=== PATIENT | female | born 1945 | race Caucasian/White ===

== ENCOUNTER → 2023-06-21 07:22 | Outpatient (REF) | payer MEDICARE, OTHER, SELFPAY ==
[2023-06-21 11:01] LABS: ALT (SGPT) 18 U/L (0-35); AST (SGOT) 24 U/L (14-36); Albumin 4.2 g/dl (3.5-5.0); Alkaline Phosphatase 58 U/L (38-126); Blood Urea Nitrogen 14 mg/dl (7-17); Calcium 9.9 mg/dl (8.4-10.2); Carbon Dioxide 26 mmol/L (22-30); Chloride 103 mmol/L (98-107); Glucose 110 mg/dl (70-99); HDL Cholesterol 79 mg/dl; LDL Cholesterol, Calculated 22 mg/dl; Potassium 4.3 mmol/L (3.5-5.1); Sodium 135 mmol/L (135-145); Total Bilirubin 0.9 mg/dl (0.2-1.3); Total Cholesterol 113 mg/dl (50-199); Total Protein 6.7 g/dl (6.3-8.2); Triglyceride 61 mg/dl (10-149); Very Low Density Lipoprotein 12 mg/dl (0-30); eGFR > 60.00
[2023-06-21 13:55] LABS: Glycohemoglobin (HgbA1c) 6.2 % (4.0-5.6)
== END ==
LOC: HWLAB 07:22
PROVIDERS: ATTENDING PHYSICIAN Internal Medicine; FAMILY PHYSICIAN Family Medicine
DX: E78.2 Mixed hyperlipidemia (principal); R73.01 Impaired fasting glucose
CPT/HCPCS: 36415; 80053; 80061; 83036

== ENCOUNTER → 2023-09-08 08:21 | Outpatient (REF) | payer MEDICARE, OTHER, SELFPAY ==
[2023-09-08 10:28] LABS: TSH 0.22 uIU/ml (0.47-4.68)
== END ==
LOC: HWLAB 08:21
PROVIDERS: ATTENDING PHYSICIAN Internal Medicine Cardiovascular Disease; FAMILY PHYSICIAN Family Medicine
DX: I47.10 Supraventricular tachycardia, unspecified (principal); R00.0 Tachycardia, unspecified
CPT/HCPCS: 36415; 84443

== ENCOUNTER → 2023-09-11 10:26 | Outpatient (REF) | payer MEDICARE, OTHER, SELFPAY ==
[2023-09-11 14:12] LABS: Free T3 3.31 pg/ml (2.77-5.27); Free T4 1.06 ng/dl (0.78-2.19)
== END ==
LOC: HWLAB 10:26
PROVIDERS: ATTENDING PHYSICIAN Internal Medicine Cardiovascular Disease; FAMILY PHYSICIAN Family Medicine
DX: R79.89 Other specified abnormal findings of blood chemistry (principal); E78.2 Mixed hyperlipidemia
CPT/HCPCS: 36415; 84439; 84481

== ENCOUNTER 2023-09-18 06:41 | Inpatient (IN) | payer MEDICARE, OTHER, SELFPAY ==
--- NOTE | 2023-08-15 13:10 | CM ---
Patient is scheduled for an elective R TKR on 09/18/23. Spoke with patient prior to surgery via telephone. Patient had a L TKR at in 2022. Reintroduced role of Orthopedic Navigator. Patient reports that she lives with her (who has vision
deficits) in a one story home. There are two steps to enter. She currently functions independently. She occasionally uses a cane or rolling walker and has no other DME. She has never had VN services. PCP is Dr. Vasile Orellana.
Discussed orthopedic program and post surgical plans. Reviewed anticipated length of stay and that goal is for her to return home at discharge. Also reviewed outpatient PT. Patient is in agreement with tentative plan and will go directly to
outpatient PT at [facility]. Her daughter will come over daily to provide support and drive her to PT.
Patient has completed online education.
Plan: Orthopedic Navigator will remain available to assist with the care of patient and will reassess discharge needs after surgery.
[2023-08-28 13:58] VITALS: BMI 41.3
[2023-08-28 14:36] LABS: Hemoglobin 12.7 g/dL (12.0-16.0); Mean Corp Hgb Conc. 33.4 g/dL (33.0-37.0); Mean Corpuscular Hgb 32.6 pg (27.0-31.0); Mean Corpuscular Volume 97.7 fL (81.0-99.0); Mean Platelet Volume 10.5 fL (7.4-10.4); Platelet Count 217 10^3/uL (130-400); Red Blood Cell Count 3.89 10^6/uL (4.20-5.40); Red Cell Dist. Width 13.7 % (11.5-14.5); White Blood Cell Count 5.4 10^3/uL (4.8-10.8)
[2023-08-28 15:17] LABS: ALT (SGPT) 21 U/L (0-35); AST (SGOT) 27 U/L (14-36); Albumin 4.3 g/dl (3.5-5.0); Alkaline Phosphatase 51 U/L (38-126); Blood Urea Nitrogen 13 mg/dl (7-17); Calcium 10.1 mg/dl (8.4-10.2); Carbon Dioxide 27 mmol/L (22-30); Chloride 105 mmol/L (98-107); Estimated Creatinine Clearance 77 ml/min; Glucose 105 mg/dl (70-99); Potassium 3.9 mmol/L (3.5-5.1); Sodium 140 mmol/L (135-145); Total Bilirubin 0.9 mg/dl (0.2-1.3); Total Protein 6.7 g/dl (6.3-8.2); eGFR > 60.00
[2023-08-29 09:07] LABS: Glycohemoglobin (HgbA1c) 5.8 % (4.0-5.6)
[2023-09-14 08:13] VITALS: BMI 41.3
[2023-09-18] VITALS (15 sets, daily range): BP systolic 112–159; BP diastolic 48–79; PULSE 60; O2SAT 94; BMI 41.3
[2023-09-18] MEDS: TYLENOL 650 MG PO ×4 (07:16→19:24)
[2023-09-18] MEDS: CELEBREX 200 MG PO (07:16)
[2023-09-18] MEDS: NORMOSOL-R 1000 IV ×2 (07:38→12:07)
[2023-09-18 07:41] LABS: Glucose - Point of Care 104 mg/dl (70-99)
--- NOTE | 2023-09-18 08:20 | W.DS.TRANS ---
DC Summary - Rotary Driller Helper
-
Discharge Instructions:
Sleep Apnea Risk High
Discharge Diagnosis/Procedures R TKA Dr. Pfeiffer 09/18/23
Diet Diabetic, Carb Controlled
Activity With Walker
Driving Restrictions No driving
Bathing Restrictions OK to Shower
Other Services PT
Instructions:
Stand-Alone Forms: Total Hip/Knee Replacement D/C
Changes to Home Medications: Yes
Discharge Medications:
DC Medications w/original date entered in [place]
escitalopram oxalate 5 mg tablet 5 mg PO DAILY Depression 08/01/22
metformin 500 mg tablet 500 mg PO QPM Diabetes 08/01/22
rosuvastatin 20 mg tablet 20 mg PO QPM High Cholesterol 08/01/22
verapamil 240 mg tablet,extended release 240 mg PO QPM Arrhythmia 08/01/22
mupirocin 2 % topical ointment 1 applic topical BID #1 tube 08/08/22
acetaminophen 325 mg tablet (Tylenol) 650 mg (2 x 325 mg) PO QID #0 tabs 08/30/22
apixaban 5 mg tablet (Eliquis) 5 mg PO BID 09/08/23
biotin 1 mg capsule 1 mg PO DAILY 09/08/23
calcium 100 mg capsule 400 mg PO DAILY 09/08/23
cholecalciferol (vitamin D3) 125 mcg (5,000 unit) tablet (Vitamin D3) 125 mcg PO DAILY 09/08/23
losartan 25 mg tablet 25 mg PO HS 09/08/23
hydromorphone 2 mg tablet 2 - 4 mg (1 - 2 x 2 mg) PO Q6H PRN 1 tab moderate pain, 2 severe #30 tabs 09/18/23
Home Medication Changes
apixaban 5 mg tablet (Eliquis) 5 mg PO BID 09/08/23--2.5mg bid
hydromorphone 2 mg tablet 2 - 4 mg (1 - 2 x 2 mg) PO Q6H PRN 1 tab moderate pain, 2 severe #30
Pending Results: No
--- NOTE | 2023-09-18 08:23 | W.DS.TRANS ---
Addendum entered and electronically signed by Savana Hauser PA-C 09/19/23 11:32:
Cefadroxil 500mg bid #14
Florastor bid
Original Note:
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
-
Discharge Instructions:
Sleep Apnea Risk High
Discharge Diagnosis/Procedures R TKA Dr. Pfeiffer 09/18/23
Diet Diabetic, Carb Controlled
Activity With Walker
Driving Restrictions No driving
Bathing Restrictions OK to Shower
Other Services PT
Instructions:
Stand-Alone Forms: Total Hip/Knee Replacement D/C
Changes to Home Medications: Yes
Discharge Medications:
DC Medications w/original date entered in [place]
escitalopram oxalate 5 mg tablet 5 mg PO DAILY Depression 08/01/22
metformin 500 mg tablet 500 mg PO QPM Diabetes 08/01/22
rosuvastatin 20 mg tablet 20 mg PO QPM High Cholesterol 08/01/22
verapamil 240 mg tablet,extended release 240 mg PO QPM Arrhythmia 08/01/22
mupirocin 2 % topical ointment 1 applic topical BID #1 tube 08/08/22
acetaminophen 325 mg tablet (Tylenol) 650 mg (2 x 325 mg) PO QID #0 tabs 08/30/22
biotin 1 mg capsule 1 mg PO DAILY 09/08/23
calcium 100 mg capsule 400 mg PO DAILY 09/08/23
cholecalciferol (vitamin D3) 125 mcg (5,000 unit) tablet (Vitamin D3) 125 mcg PO DAILY 09/08/23
losartan 25 mg tablet 25 mg PO HS 09/08/23
apixaban 5 mg tablet (Eliquis) 2.5 mg (1/2 x 5 mg) PO BID Blood clot prevention/tx/afib #0 tabs 09/18/23
docusate sodium 100 mg capsule (Colace) 100 mg PO BID stool softner #1 cap 09/18/23
hydromorphone 2 mg tablet 2 - 4 mg (1 - 2 x 2 mg) PO Q6H PRN 1 tab moderate pain, 2 severe #30 tabs 09/18/23
magnesium hydroxide 400 mg/5 mL oral suspension (Milk of Magnesia) 30 ml PO HS PRN Constipation #1 mL 09/18/23
sennosides 8.6 mg tablet (Senokot) 17.2 mg (2 x 8.6 mg) PO BID laxative #2 tabs 09/18/23
Home Medication Changes
apixaban 5 mg tablet (Eliquis) 2.5 mg (1/2 x 5 mg) PO BID Blood clot prevention/tx/afib #0 tabs 09/18/23
hydromorphone 2 mg tablet 2 - 4 mg (1 - 2 x 2 mg) PO Q6H PRN 1 tab moderate pain, 2 severe #30
Pending Results: No
[2023-09-18 10:39] LABS: Glucose - Point of Care 115 mg/dl (70-99)
[2023-09-18] MEDS: DILAUDID 2 MG PO (11:25)
--- NOTE | 2023-09-18 12:39 | PTCARENOTE ---
1225: Patient arrived to 2S. Full head to toe assessment completed. B/L LE neurovascular assessment completed. R knee aqaucell with scant amount of drainage. IVF running per order. Patient on RA with SpO2 greater than 92%. Call chen within reach and
bed in lowest position.
[2023-09-18 12:58] LABS: Glucose - Point of Care 147 mg/dl (70-99)
[2023-09-18] MEDS: NOVOLOG FLEXPEN-MODERATE RESISTANCE SC (13:06)
[2023-09-18] MEDS: NOVOLOG FLEXPEN 4 UNITS SC ×2 (13:35→17:02)
[2023-09-18 16:55] LABS: Glucose - Point of Care 157 mg/dl (70-99)
[2023-09-18] MEDS: CRESTOR 20 MG PO (17:01)
[2023-09-18] MEDS: ANCEF 5 IV ×2 (17:01→23:12)
[2023-09-18] MEDS: GLUCOPHAGE XR EXTENDED RELEASE 500 MG PO (17:01)
[2023-09-18] MEDS: NOVOLOG FLEXPEN-MODERATE RESISTANCE 1 UNITS SC (17:02)
[2023-09-18] MEDS: CALAN EXTENDED RELEASE 240 MG PO (17:03)
[2023-09-18] MEDS: DILAUDID 4 MG PO (19:23)
[2023-09-18] MEDS: SENOKOT 17.2 MG PO (19:24)
[2023-09-18] MEDS: BACTROBAN 2% OINTMENT 1 APPLIC NASAL (19:24)
[2023-09-18] MEDS: COLACE 100 MG PO (19:24)
[2023-09-18] MEDS: ELIQUIS 2.5 MG PO (19:29)
[2023-09-18] MEDS: NEURONTIN 300 MG PO (21:09)
[2023-09-18 21:30] LABS: Glucose - Point of Care 142 mg/dl (70-99)
[2023-09-19] MEDS: TYLENOL PO (00:05)
[2023-09-19] MEDS: DILAUDID 2 MG PO ×2 (00:30→10:33)
[2023-09-19] MEDS: TYLENOL 650 MG PO ×3 (00:30→11:06)
[2023-09-19 03:15] VITALS: BP 144/69
[2023-09-19 07:34] VITALS: BP 148/61
[2023-09-19 07:50] LABS: Glucose - Point of Care 184 mg/dl (70-99)
[2023-09-19] MEDS: NOVOLOG FLEXPEN-MODERATE RESISTANCE 1 UNITS SC (07:52)
[2023-09-19] MEDS: NOVOLOG FLEXPEN 4 UNITS SC (07:52)
[2023-09-19] MEDS: SENOKOT 17.2 MG PO (07:53)
[2023-09-19] MEDS: COLACE 100 MG PO (07:54)
[2023-09-19] MEDS: BACTROBAN 2% OINTMENT 1 APPLIC NASAL (07:54)
[2023-09-19] MEDS: LEXAPRO 5 MG PO (07:54)
[2023-09-19] MEDS: ELIQUIS 2.5 MG PO (07:54)
[2023-09-19 09:05] VITALS: BP 149/67; PULSE 56; O2SAT 98
[2023-09-19 09:46] VITALS: BP 164/68
--- NOTE | 2023-09-19 09:53 | CM ---
Addendum entered by Anna Tian 09/19/23 10:47:
Per patient she has script at home for PT.
Original Note:
Patient seen bedside.
Patient sitting in chair.
Daughter Maddie will transport home.
Plan is [facility] outpatient PT.
Per patient she has equipment from prior knee surgery.
IMM completed.
Plan: home with outpatient therapy.
--- NOTE | 2023-09-19 11:19 | W.PN.ORTHO ---
Today's Communication / Plan
-
d/c
Assessment
.
Distal Motor Intact: Yes
Dressing:
Clean, dry and intact.
Assessment:
New onset Afib pre-op 6% burden on ambulatory monitor-Eliquis initiated [id number] Verapamil uninterrupted-rate controlled/stable on tele
NIDDM
Morbid Obesity-BMI 41.2
-Cefadroxil ppx w/ probiotic has been added to meds--Rx sent-patient made aware
Plan
.
Surgery / Date: R TKA Dr. Pfeiffer 09/18/23
DVT Prophylaxis: Other (Eliquis 2.5mg bid-resume 5mg bid dosing on POD#3)
Activity:
Out of bed.
PT/OT
Discharge Plan: Home w/ Outpatient PT
Subjective
.
.:
Patient resting comfortably.
Vital Signs and Labs
.
Vital Signs and Labs:
Lab Results
08/28/23 13:37
08/28/23 13:37
Temp Pulse Resp BP Pulse Ox
98 F 67 16 148/61 97
09/19/23 07:34 09/19/23 07:34 09/19/23 07:34 09/19/23 07:34 09/19/23 07:34
Non-invasive Hgb result: 12.7
Physical Exam
-
HEENT: No pallor, cyanosis, or jaundice. Throat clear.
NECK: Supple. No JVD.
RESPIRATORY: Lungs clear to auscultation.
CVS: S1, S2 normal. RRR.� No murmur, rub or gallop.
ABDOMEN: Soft, non-tender. No distension. BS+/normal.
EXTREMITIES: strength equal, no calf pain with palpation
ELIGIBILITY CONSULTANT: AOx3. No focal deficits. avionics systems technician grossly intact
[2023-09-19 11:36] VITALS: BP 96/54
== END 2023-09-19 11:46 | disposition home or self-care (01) | DRG 470 ==
LOC: 2 SOUTH 06:41
PROVIDERS: ADMITTING PHYSICIAN Specialist; FAMILY PHYSICIAN Family Medicine
PROC: 0SRC0J9 Replacement of Right Knee Joint with Synthetic Substitute, Cemented, Open Approach (ICD-10-PCS; 2023-09-18)
DX: M17.11 Unilateral primary osteoarthritis, right knee (principal); I47.20 Ventricular tachycardia, unspecified; E66.01 Morbid (severe) obesity due to excess calories; Z68.39 Body mass index [BMI] 39.0-39.9, adult; I10 Essential (primary) hypertension; I34.0 Nonrheumatic mitral (valve) insufficiency; I70.0 Atherosclerosis of aorta; E11.9 Type 2 diabetes mellitus without complications; I48.91 Unspecified atrial fibrillation; E78.2 Mixed hyperlipidemia; Z96.652 Presence of left artificial knee joint; Z79.01 Long term (current) use of anticoagulants; Z79.84 Long term (current) use of oral hypoglycemic drugs; Z79.899 Other long term (current) drug therapy; Z90.89 Acquired absence of other organs; Z86.16 Personal history of COVID-19; Z85.828 Personal history of other malignant neoplasm of skin; Z82.49 Family history of ischemic heart disease and other diseases of the circulatory system
CPT/HCPCS: 36415; 73560; 80053; 82962; 83036; 85027; 87070; 97110; 97116; 97162; 97166; 97530; 97535; C1713; C1776

== ENCOUNTER 2023-11-27 19:00 | Emergency (ER) | payer MEDICARE, OTHER, SELFPAY ==
[2023-11-27 19:04] VITALS: BP 134/96
[2023-11-27 19:24] LABS: % Basophils 0.6 % (0-2); % Eosinophils 1.2 % (0-6); % Immature Granulocytes 0.1 % (0-0.5); % Lymphocytes 28.5 % (20.5-51.1); % Monocytes 7.8 % (1.7-9.3); % Neutrophils 61.8 % (42.2-75.2); Absolute Basophils 0.1 10^3/uL (0-0.2); Absolute Eosinophils 0.1 10^3/uL (0-0.7); Absolute Lymphocytes 2.3 10^3/uL (1.2-3.4); Absolute Monocytes 0.6 10^3/uL (0.1-0.6); Absolute Neutrophils 5.1 10^3/uL (1.4-6.5); Hematocrit 36.8 % (37.0-47.0); Hemoglobin 12.4 g/dL (12.0-16.0); Mean Corp Hgb Conc. 33.7 g/dL (33.0-37.0); Mean Corpuscular Hgb 30.5 pg (27.0-31.0); Mean Corpuscular Volume 90.6 fL (81.0-99.0); Mean Platelet Volume 9.6 fL (7.4-10.4); Nucleated Red Blood Cells % 0 %; Platelet Count 289 10^3/uL (130-400); Red Blood Cell Count 4.06 10^6/uL (4.20-5.40); Red Cell Dist. Width 13.5 % (11.5-14.5); White Blood Cell Count 8.2 10^3/uL (4.8-10.8)
[2023-11-27 19:40] VITALS: BP 115/61
[2023-11-27] MEDS: ADENOCARD 6 MG IV (19:41)
[2023-11-27] MEDS: NSS 500 IV (19:41)
--- NOTE | 2023-11-27 19:41 | ED.GENMED ---
History of Present Illness
General
Chief Complaint: Heart Rate Problem
Source: patient, spouse and family
Exam Limitations: none
Time Seen by Provider: 11/27/23 19:19
Nursing documentation reviewed up to this point in time: agreed with
History of Present Illness
History of Present Illness:
78-year-old female with a past medical history of hypertension, hyperlipidemia, paroxysmal SVT and paroxysmal atrial fibrillation (on Eliquis) who presents to the emergency department for evaluation of palpitations and tachycardia, fatigue. Patient
reports that the symptoms started Monday afternoon and initially they were intermittent�she would noticed intense palpitations and tachycardia and associated fatigue. She says that yesterday they started to become more persistent and today they
became much more intense which finally prompted her to come to the emergency room for assessment. She says the symptoms are very similar to prior episodes of SVT. She did have an ablation in the past but has had multiple episodes since. She
follows with Dr. Chavez for cardiology. She is on Eliquis and compliant. She is also on verapamil. She has not missed any doses of her medications with the exception of her evening dose of Eliquis today. She denies any chest pain, shortness of
breath, or any other complaints today.
Past History
Past History
ED Past Medical History: Arrthythmia, HTN and Other (Status post )
ED Past Surgical History: Cardiac (Ablation)
Social History
Tobacco: Non-smoker
Alcohol: Occasional
Drug: None
Personal:
Living: with family
Employment: Retired
Family History
Family History: Other (Mother with breast cancer and coronary artery disease, dad with prostate cancer)
Review of Systems
Review of Systems
All Other Systems: ROS reviewed and negative except as documented in HPI and ROS
Constitutional: Reports fatigue; Denies fever or chills
Respiratory: Denies trouble breathing
Cardiac: Reports palpitations; Denies chest pain or syncope
ABD/GI: Denies abdominal pain or vomiting
: Denies flank pain
Musculoskeletal: Denies neck pain or back pain
Neurological: Denies headache
Phy Exam
Physical Exam
Physical Exam:
General: Awake, alert, oriented x3; no acute distress
Head: Normocephalic, atraumatic
Eyes: Conjunctiva normal, pupils equal round and reactive to light bilaterally
Throat: Airway intact, handling secretions
Neck: Trachea midline, supple without meningismus
Lungs: Clear to auscultation bilaterally, no wheezing, rales, rhonchi
Heart: Tachycardia with ostensibly regular rhythm, no murmurs, gallops, or rubs
Abd: Soft, non distended, nontender
Neuro: No gross deficits
Skin: no rash
Extremities: No edema in extremities, equal pulses in all extremities
Scores
Heart Failure Risk
Heart Failure Risk Score: Not Applicable
Heart Score for Chest Pain Patients
STEMI patient?: Not applicable
Withdrawal Assessment of Alcohol
Withdrawal Assessment Completed?: Not applicable
Course
Orders/Labs/Results
Orders:
Orders
11/27/23 19:02
ECG [Electrocardiogram (*1)] Urgent
Reason for Study: Palpitations
EKG- Treatment ONCE
11/27/23 19:16
Complete Blood Count/With Diff Urgent
Comprehensive Metabolic Panel Urgent
Magnesium Urgent
TSH Reflex To Free T4 Urgent
11/27/23 19:28
0.9% Sodium Chloride 500 ml [Nss] 500 ml IV BOLUS
Adenosine [Adenocard] 6 mg IV NOW STA
11/27/23 19:30
Electrocardiogram (*1) Urgent
Reason for Study: Tachycardia
EKG- Treatment ONCE
Abnormal Lab Results
11/27/23
19:16
RBC 4.06 L 10^6/uL
(4.20-5.40)
Hct 36.8 L %
(37.0-47.0)
11/27/23 19:16
Vital Signs
Initial and Last Documented VS:
Initial Vital Signs
Temp Pulse Resp BP Pulse Ox
36.8 C 159 20 134/96 96
11/27/23 19:04 11/27/23 19:04 11/27/23 19:04 11/27/23 19:04 11/27/23 19:04
Last Documented Vital Signs
Temp Pulse Resp BP Pulse Ox
36.8 C 159 20 134/96 96
11/27/23 19:04 11/27/23 19:04 11/27/23 19:04 11/27/23 19:04 11/27/23 19:04
MDM/Problems Addressed
Differential Diagnosis Includes:
SVT, atrial fibrillation, atrial flutter
MDM/Problems Addressed:
78-year-old female presents for evaluation of palpitations and tachycardia, fatigue�ongoing since Monday but much worse today. She arrived was normotensive but tachycardic with a heart rate in the high 150s. Normal respiratory rate, normal pulse
ox, afebrile. Physical exam as above. Her EKG in triage shows what appears to be SVT�narrow complex regular tachycardia. IV placed labs sent off including a CBC and a CMP, thyroid studies. Will treat with adenosine. Reassess.
Patient treated with adenosine 6 mg rapid IV push with appropriate response and converted to sinus rhythm. Repeat EKG confirms sinus rhythm. Symptoms resolved with treatment here. Blood pressure remains normal. Will continue to monitor for
recurrence. Awaiting results of labs. If she remains asymptomatic in sinus rhythm with reassuring labs can likely be discharged with outpatient cardiology follow-up.
Chronic conditions affecting care:
Paroxysmal SVT
*Pulse Oximetry
Patient hypoxic: no
*EKG
Interpreted by ED Provider?: Yes
Heart Rate: 159
Rate: tachycardiac
Rhythm: SVT
[place]: left axis deviation
Interval: normal interval
QRS Pattern: normal QRS
Ischemia: non-specific ST changes
*Critical Care Note
Total Time (30-74mins, 75-104mins- exclusive of procedures): 30
comment:
Critical care statement: A total of 30 minutes of critical care time was provided for this patient. This includes management of unstable vital signs, evaluation of the patient at bedside, frequent reassessment, discussion with
consultants/hospitalist, and review of pertinent medical records. This time was separate from time utilized to perform any aforementioned documented procedures
Data Reviewed
Source: patient, spouse and family
ED Attending Note
-
Portions of this chart may have been created with voice recognition software.� Occasional wrong word or��sound alike� substitutions may have occurred due to the inherent limitations of voice recognition software.
Discharge Plan
Departure
Patient with high blood pressure during this ER visit?: No
Discharge Problem:
SVT (supraventricular tachycardia)
Instructions: Supraventricular tachycardia (SVT)
Prescriptions:
No Action
metformin 500 mg Tablet
500 mg PO QPM
Patient Comments:
patient stopped med
verapamil 240 mg Tablet Extended Release
240 mg PO QPM
rosuvastatin 20 mg Tablet
20 mg PO QPM
escitalopram oxalate 5 mg Tablet
5 mg PO DAILY
losartan 25 mg Tablet
25 mg PO HS
calcium 100 mg Capsule
400 mg PO DAILY
cholecalciferol (vitamin D3) [Vitamin D3] 125 mcg (5,000 unit) Tablet
125 mcg PO DAILY
biotin 1 mg Capsule
1 mg PO DAILY
sennosides [Senokot] 8.6 mg tablet
17.2 mg PO BID Qty: 2 0RF
hydromorphone 2 mg tablet
2 - 4 mg PO Q6H PRN (Reason: 1 tab moderate pain, 2 severe) Qty: 30 0RF
Rx Instructions:
Dx orthopedic surgery
Ongoing therapy
magnesium hydroxide [Milk of Magnesia] 400 mg/5 mL suspension
30 ml PO HS PRN (Reason: Constipation) Qty: 1 0RF
docusate sodium [Colace] 100 mg capsule
100 mg PO BID Qty: 1 0RF
Eliquis 5 mg Tablet
2.5 mg PO BID Qty: 0 0RF
Rx Instructions:
1/2tab (2.5mg) twice a day -RESUME 5MG TWICE DAILY DOSING ON 8/8 pm
acetaminophen [Tylenol] 325 mg tablet
650 mg PO QID
mupirocin 2 % ointment
1 applic topical BID
cefadroxil 500 mg capsule
500 mg PO BID Qty: 14 0RF
Rx Instructions:
*Take w/ food
*Take w/ probiotic
*POST-OP USE
Saccharomyces boulardii [Florastor] 250 mg capsule
250 mg PO BID Qty: 1 0RF
Referrals:
Vasile Orellana Jr., DO [Family Provider] -
Michelet Chavez MD [Active] - Call in 1-3 days for appt
Activity Restrictions/Additional Instructions:
Thank you for visiting the Emergency Department at [facility].
1. Please schedule a follow up appointment as directed. Call first thing tomorrow morning to make an appointment.
2. If indicated, please take your medications as instructed and indicated on discharge paperwork.
3. If any of your symptoms do not improve, or persist, or become more severe within 6-12 hours, please return to the emergency department for further care.
4. Please return to the emergency department if you develop a headache, neck pain/stiffness, fever greater than 100.4F, chest pain, shortness of breath, persistent nausea, vomiting, slurred speech, difficulty walking, numbness/tingling, weakness,
signs of infection or any other symptoms that are worrisome to you.
Please call [phone] if you have any questions.
Interventions
Interventions:
*General Assessment Last Done: 11/27/23 19:04
ED- Cardiac Assessment Last Done: 11/27/23 19:43
ED- Pulmonary Assessment Last Done: 11/27/23 19:43
Discharge Date and Time
Print Language: ARABIC
[2023-11-27 19:44] LABS: ALT (SGPT) 19 U/L (0-35); AST (SGOT) 27 U/L (14-36); Albumin 4.2 g/dl (3.5-5.0); Alkaline Phosphatase 37 U/L (38-126); Blood Urea Nitrogen 22 mg/dl (7-17); Calcium 9.9 mg/dl (8.4-10.2); Carbon Dioxide 20 mmol/L (22-30); Chloride 103 mmol/L (98-107); Glucose 156 mg/dl (70-99); Magnesium 1.8 mg/dl (1.6-2.3); Potassium 4.6 mmol/L (3.5-5.1); Sodium 138 mmol/L (135-145); Total Bilirubin 0.6 mg/dl (0.2-1.3); Total Protein 6.6 g/dl (6.3-8.2); eGFR > 60.00
[2023-11-27 20:00] VITALS: BP 113/60
[2023-11-27 20:11] LABS: TSH Reflex To Free T4 0.19 uIU/ml (0.47-4.68)
[2023-11-27 20:41] LABS: Free T4 1.08 ng/dl (0.78-2.19)
== END 2023-11-27 21:17 | disposition home or self-care (01) ==
LOC: EMR 19:00
PROVIDERS: EMERGENCY PHYSICIAN Emergency Medicine; FAMILY PHYSICIAN Family Medicine
DX: I47.10 Supraventricular tachycardia, unspecified (principal); I10 Essential (primary) hypertension; E78.5 Hyperlipidemia, unspecified; I48.0 Paroxysmal atrial fibrillation
CPT/HCPCS: 99291; 96374; 96361; 80053; 83735; 84439; 84443; 85025; 93005; J0153

== ENCOUNTER 2023-11-29 13:14 | Emergency (ER) | payer MEDICARE, OTHER, SELFPAY ==
[2023-11-29 13:20] VITALS: BP 149/87
[2023-11-29 13:30] VITALS: BP 143/86
[2023-11-29] MEDS: ADENOCARD 6 MG IV (13:42)
[2023-11-29 13:45] VITALS: BP 129/91
[2023-11-29 13:45] LABS: % Basophils 0.7 % (0-2); % Eosinophils 0.7 % (0-6); % Immature Granulocytes 0.3 % (0-0.5); % Lymphocytes 20.7 % (20.5-51.1); % Neutrophils 69.6 % (42.2-75.2); Absolute Basophils 0.1 10^3/uL (0-0.2); Absolute Eosinophils 0.1 10^3/uL (0-0.7); Absolute Lymphocytes 1.6 10^3/uL (1.2-3.4); Absolute Monocytes 0.6 10^3/uL (0.1-0.6); Absolute Neutrophils 5.3 10^3/uL (1.4-6.5); Hematocrit 36.8 % (37.0-47.0); Hemoglobin 12.6 g/dL (12.0-16.0); Mean Corp Hgb Conc. 34.2 g/dL (33.0-37.0); Mean Corpuscular Hgb 32.1 pg (27.0-31.0); Mean Corpuscular Volume 93.9 fL (81.0-99.0); Mean Platelet Volume 10.1 fL (7.4-10.4); Nucleated Red Blood Cells % 0 %; Platelet Count 252 10^3/uL (130-400); Red Blood Cell Count 3.92 10^6/uL (4.20-5.40); Red Cell Dist. Width 13.6 % (11.5-14.5); White Blood Cell Count 7.5 10^3/uL (4.8-10.8)
[2023-11-29 13:54] LABS: Blood Urea Nitrogen 17 mg/dl (7-17); Calcium 9.7 mg/dl (8.4-10.2); Carbon Dioxide 23 mmol/L (22-30); Chloride 104 mmol/L (98-107); Glucose 105 mg/dl (70-99); Potassium 4.4 mmol/L (3.5-5.1); Sodium 140 mmol/L (135-145); eGFR > 60.00
[2023-11-29 14:00] VITALS: BP 125/65
--- NOTE | 2023-11-29 14:01 | ED.GENMED ---
History of Present Illness
General
Chief Complaint: Heart Rate Problem
Source: patient and records
Time Seen by Provider: 11/29/23 13:30
History of Present Illness
History of Present Illness:
78-year-old female with past medical history of paroxysmal atrial fibrillation and paroxysmal SVT, hypertension, hyperlipidemia, [id number] diabetes presenting to the emergency department for evaluation of palpitations, lightheadedness
and mild shortness of breath which feels similar to earlier this week when she was found to be in SVT and converted with adenosine. Patient has a follow-up visit scheduled with cardiology for this coming Monday but due to symptoms decided to come
to the ER today. She notes that she was at the orthopedic doctor this morning for right knee pain but states that this was an unrelated issue. She denies any fevers or infectious symptoms. She does report good compliance with her Eliquis. No
other concerns presently.
Past History
Past History
ED Past Medical History: Arrthythmia, HTN, Hypercholesterolemia, NIDDM and Other (Status post )
ED Past Surgical History: Appendectomy, Cardiac (Ablation), and Orthopedic
Social History
Tobacco: Non-smoker
Alcohol: Occasional
Drug: None
Personal:
Living: with family
Employment: Retired
Family History
Family History: Other (Mother with breast cancer and coronary artery disease, dad with prostate cancer)
Review of Systems
Review of Systems
All Other Systems: ROS reviewed and negative except as documented in HPI and ROS
Phy Exam
Physical Exam
Physical Exam:
GENERAL: Alert , in no apparent distress
EYE: conjunctiva clear
NECK: Supple
ENT: mmm.
CARDIAC: Tachycardic rate and rhythm sitting around 150 bpm
LUNGS: Clear breath sounds bilaterally, no acute respiratory distress, no wheezes/rales/rhonchi
NEUROLOGICAL: Alert and oriented
SKIN: Warm and dry, skin intact.
MUSCULOSKELETAL: well perfused.
PSYCH: Normal and appropriate interaction.
Scores
Heart Failure Risk
Heart Failure Risk Score: Not Applicable
Heart Score for Chest Pain Patients
STEMI patient?: Not applicable
Withdrawal Assessment of Alcohol
Withdrawal Assessment Completed?: Not applicable
Course
Orders/Labs/Results
Orders:
Orders
11/29/23 13:16
Electrocardiogram (*1) Urgent
Reason for Study: Chest Pain
EKG- Treatment ONCE
11/29/23 13:34
BMP [Basic Metabolic Panel] Urgent
Complete Blood Count/With Diff Urgent
11/29/23 13:36
Adenosine [Adenocard] 6 mg .ROUTE .STK-MED ONE
11/29/23 13:39
Adenosine [Adenocard] 6 mg IV NOW STA
Abnormal Lab Results
11/29/23
13:34
RBC 3.92 L 10^6/uL
(4.20-5.40)
Hct 36.8 L %
(37.0-47.0)
MCH 32.1 H pg
(27.0-31.0)
Glucose 105 H mg/dl
(70-99)
11/29/23 13:34
11/29/23 13:34
Vital Signs
Initial and Last Documented VS:
Initial Vital Signs
Temp Pulse Resp BP Pulse Ox
97.5 F 160 16 149/87 95
11/29/23 13:20 11/29/23 13:20 11/29/23 13:20 11/29/23 13:20 11/29/23 13:20
Last Documented Vital Signs
Temp Pulse Resp BP Pulse Ox
97.5 F 78 18 131/63 94
11/29/23 13:20 11/29/23 14:15 11/29/23 14:15 11/29/23 14:15 11/29/23 14:15
Senior Applications Developer consulted with Physician
Senior Applications Developer consulted with physician?: Yes
Name of Physician Consulted: Matias
MDM/Problems Addressed
Differential Diagnosis Includes:
SVT, atrial fibrillation, no concern for ACS
MDM/Problems Addressed:
78-year-old female presenting to the emergency department for evaluation of palpitations, shortness of breath and lightheadedness. EKG done in triage shows suspected SVT with a rate in the 160s. Patient converted with 6 mg of adenosine earlier
this week back to a normal sinus rhythm. Patient currently stable and in no acute distress. Discussed with patient risk versus benefit of attempting adenosine again. Patient ultimately would like to be treated similarly. Once given the adenosine
if patient converts then we can presume patient was back in a paroxysmal SVT but patient may also have an underlying atrial fibrillation which we could then treat with other medication. We also attempted vagal maneuvers prior to any medications
which patient did not respond to.
Chronic conditions affecting care: Arrhythmia
Acute Exacerbation and/or Progression of Chronic Illness: Arrhythmia
*Pulse Oximetry
Patient hypoxic: no
*EKG
Interpreted by ED Provider?: Yes
Heart Rate: 146
Rate: tachycardiac
Rhythm: SVT
[place]: left axis deviation
*[employer]it [employer] Police Officer Interpretation
Rate: tachycardiac
Rhythm: SVT
*Critical Care Note
Total Time (30-74mins, 75-104mins- exclusive of procedures): 30
comment:
Critical care statement: A total of 30 minutes of critical care time was provided for this patient. This includes management of unstable vital signs, evaluation of the patient at bedside, reviewing the patient's pertinent medical records, discussion
with consultants, review of old EKGs and review of pertinent medical records. This time with separate from time utilized to perform the aforementioned documented procedures
Data Reviewed
Review of Other/Old Records Reveals: Labs and Records
Source: patient, records and spouse
Patient Management
Discussion with other providers: Lumber Racker
Escalation/DeEscalation of care consider admission/obs:
Following 6 mg of adenosine patient was converted back into a normal sinus rhythm with a rate around 75 bpm. I discussed the case with on-call legislative correspondent, Dr. Blanco, who is okay with us starting the patient on 25 mg of Toprol XL and patient will
follow-up as scheduled on Monday. Patient aware of return precautions to the ER but is otherwise stable for discharge home.
ED Attending Note
-
Portions of this chart may have been created with voice recognition software.� Occasional wrong word or��sound alike� substitutions may have occurred due to the inherent limitations of voice recognition software.
Discharge Plan
Departure
Patient Disposition: Home (Routine Discharge)
Date of Disposition: 11/29/23
Time of Disposition: 14:08
Patient with high blood pressure during this ER visit?: No
Discharge Problem:
Paroxysmal supraventricular tachycardia
Instructions: Supraventricular tachycardia (SVT)
Prescriptions:
New
metoprolol succinate [Toprol XL] 25 mg tablet extended release 24 hr
25 mg PO DAILY Qty: 30 0RF
No Action
metformin 500 mg Tablet
500 mg PO QPM
Patient Comments:
patient stopped med
verapamil 240 mg Tablet Extended Release
240 mg PO QPM
rosuvastatin 20 mg Tablet
20 mg PO QPM
escitalopram oxalate 5 mg Tablet
5 mg PO DAILY
losartan 25 mg Tablet
25 mg PO HS
calcium 100 mg Capsule
400 mg PO DAILY
cholecalciferol (vitamin D3) [Vitamin D3] 125 mcg (5,000 unit) Tablet
125 mcg PO DAILY
biotin 1 mg Capsule
1 mg PO DAILY
sennosides [Senokot] 8.6 mg tablet
17.2 mg PO BID Qty: 2 0RF
hydromorphone 2 mg tablet
2 - 4 mg PO Q6H PRN (Reason: 1 tab moderate pain, 2 severe) Qty: 30 0RF
Rx Instructions:
Dx orthopedic surgery
Ongoing therapy
magnesium hydroxide [Milk of Magnesia] 400 mg/5 mL suspension
30 ml PO HS PRN (Reason: Constipation) Qty: 1 0RF
docusate sodium [Colace] 100 mg capsule
100 mg PO BID Qty: 1 0RF
Eliquis 5 mg Tablet
2.5 mg PO BID Qty: 0 0RF
Rx Instructions:
1/2tab (2.5mg) twice a day -RESUME 5MG TWICE DAILY DOSING ON 8/8 pm
acetaminophen [Tylenol] 325 mg tablet
650 mg PO QID
mupirocin 2 % ointment
1 applic topical BID
cefadroxil 500 mg capsule
500 mg PO BID Qty: 14 0RF
Rx Instructions:
*Take w/ food
*Take w/ probiotic
*POST-OP USE
Saccharomyces boulardii [Florastor] 250 mg capsule
250 mg PO BID Qty: 1 0RF
Referrals:
Vasile Orellana Jr., DO [Family Provider] -
Interventions
Interventions:
*Risk Screen - Suicide Last Done: 11/29/23 13:18
*General Assessment Last Done: 11/29/23 13:18
*Neglect/Abuse Screening Last Done: 11/29/23 13:18
ED- Fall Risk Assessment Last Done: 11/29/23 14:30
*ED COVID-19 Vaccine History Last Done: 11/29/23 13:32
*Nursing Disposition Last Done: 11/29/23 14:30
ED- Cardiac Assessment Last Done: 11/29/23 13:26
ED- Pulmonary Assessment Last Done: 11/29/23 13:26
Discharge Date and Time
Print Language: FIJIAN
[2023-11-29 14:15] VITALS: BP 131/63
== END 2023-11-29 14:32 | disposition home or self-care (01) ==
LOC: EMR 13:14
PROVIDERS: Physician Assistant Medical; EMERGENCY PHYSICIAN Student in an Organized Health Care Education/Training Program; FAMILY PHYSICIAN Family Medicine
DX: I47.19 Other supraventricular tachycardia (principal); I10 Essential (primary) hypertension; E78.00 Pure hypercholesterolemia, unspecified; E11.9 Type 2 diabetes mellitus without complications; I48.0 Paroxysmal atrial fibrillation; Z79.01 Long term (current) use of anticoagulants
CPT/HCPCS: 96374; 99291; 80048; 85025; 93005; J0153

== ENCOUNTER → 2024-01-16 13:13 | Outpatient (REF) | payer MEDICARE, OTHER, SELFPAY | LOC: DHSLP 13:13 | PROVIDERS: ATTENDING PHYSICIAN Internal Medicine Cardiovascular Disease; FAMILY PHYSICIAN Family Medicine | DX: G47.33 Obstructive sleep apnea (adult) (pediatric) (principal) | CPT/HCPCS: 95800 ==

== ENCOUNTER → 2024-07-15 07:19 | Outpatient (REF) | payer MEDICARE, OTHER, SELFPAY ==
[2024-07-15 09:18] LABS: % Eosinophils 1.8 % (0-6); % Immature Granulocytes 0.2 % (0-0.5); % Lymphocytes 26.1 % (20.5-51.1); % Monocytes 9.4 % (1.7-9.3); % Neutrophils 61.5 % (42.2-75.2); Absolute Basophils 0.1 10^3/uL (0-0.2); Absolute Eosinophils 0.1 10^3/uL (0-0.7); Absolute Lymphocytes 1.3 10^3/uL (1.2-3.4); Absolute Monocytes 0.5 10^3/uL (0.1-0.6); Absolute Neutrophils 3.2 10^3/uL (1.4-6.5); Hematocrit 37.9 % (37.0-47.0); Hemoglobin 12.7 g/dL (12.0-16.0); Mean Corp Hgb Conc. 33.5 g/dL (33.0-37.0); Mean Corpuscular Hgb 32.6 pg (27.0-31.0); Mean Corpuscular Volume 97.2 fL (81.0-99.0); Mean Platelet Volume 10.5 fL (7.4-10.4); Nucleated Red Blood Cells % 0 %; Platelet Count 219 10^3/uL (130-400); Red Cell Dist. Width 12.8 % (11.5-14.5); White Blood Cell Count 5.1 10^3/uL (4.8-10.8)
[2024-07-15 10:04] LABS: TSH Reflex To Free T4 0.41 uIU/ml (0.47-4.68)
[2024-07-15 10:36] LABS: Glycohemoglobin (HgbA1c) 5.9 % (4.0-5.6)
[2024-07-15 10:46] LABS: ALT (SGPT) 18 U/L (0-35); AST (SGOT) 21 U/L (14-36); Albumin 4.4 g/dl (3.5-5.0); Alkaline Phosphatase 44 U/L (38-126); Blood Urea Nitrogen 20 mg/dl (7-17); Calcium 9.5 mg/dl (8.4-10.2); Carbon Dioxide 21 mmol/L (22-30); Chloride 107 mmol/L (98-107); Glucose 113 mg/dl (70-99); HDL Cholesterol 64 mg/dl; LDL Cholesterol, Calculated 38 mg/dl; Potassium 4.2 mmol/L (3.5-5.1); Sodium 137 mmol/L (135-145); Total Bilirubin 0.9 mg/dl (0.2-1.3); Total Cholesterol 118 mg/dl (50-199); Total Protein 6.7 g/dl (6.3-8.2); Triglyceride 84 mg/dl (10-149); Very Low Density Lipoprotein 16 mg/dl (0-30); eGFR > 60.00
== END ==
LOC: HWLAB 07:19
PROVIDERS: ATTENDING PHYSICIAN Family Medicine
DX: R73.01 Impaired fasting glucose (principal); E78.2 Mixed hyperlipidemia; R53.83 Other fatigue; Z13.29 Encounter for screening for other suspected endocrine disorder
CPT/HCPCS: 36415; 80053; 80061; 83036; 84439; 84443; 85025

== ENCOUNTER → 2024-08-01 12:47 | Outpatient (REF) | payer MEDICARE, OTHER, SELFPAY | LOC: HWRAD 12:47 | PROVIDERS: ATTENDING PHYSICIAN Family Medicine | DX: M53.3 Sacrococcygeal disorders, not elsewhere classified (principal) | CPT/HCPCS: 72190 ==

== ENCOUNTER → 2024-08-22 08:44 | Outpatient (REF) | payer MEDICARE, OTHER, SELFPAY | LOC: HWRAD 08:44 | PROVIDERS: ATTENDING PHYSICIAN Family Medicine | DX: Z13.820 Encounter for screening for osteoporosis (principal); Z12.31 Encounter for screening mammogram for malignant neoplasm of breast; Z78.0 Asymptomatic menopausal state | CPT/HCPCS: 77063; 77067; 77080 ==

== ENCOUNTER → 2024-11-01 07:54 | Outpatient (REF) | payer MEDICARE, OTHER, SELFPAY ==
[2024-11-01 09:41] LABS: Hematocrit 38.2 % (37.0-47.0); Hemoglobin 12.7 g/dL (12.0-16.0); Mean Corp Hgb Conc. 33.2 g/dL (33.0-37.0); Mean Corpuscular Volume 94.8 fL (81.0-99.0); Nucleated Red Blood Cells % 0 %; Platelet Count 223 10^3/uL (130-400); Red Cell Dist. Width 12.8 % (11.5-14.5)
[2024-11-01 11:08] LABS: Glycohemoglobin (HgbA1c) 6.0 % (4.0-5.6)
[2024-11-01 12:20] LABS: ALT (SGPT) 19 U/L (0-35); AST (SGOT) 21 U/L (14-36); Albumin 4.3 g/dl (3.5-5.0); Alkaline Phosphatase 47 U/L (38-126); Blood Urea Nitrogen 20 mg/dl (7-17); Calcium 9.8 mg/dl (8.4-10.2); Carbon Dioxide 26 mmol/L (22-30); Chloride 105 mmol/L (98-107); Glucose 106 mg/dl (70-99); Magnesium 2.1 mg/dl (1.6-2.3); Potassium 4.6 mmol/L (3.5-5.1); Sodium 136 mmol/L (135-145); Total Protein 6.9 g/dl (6.3-8.2); Uric Acid 4.6 mg/dl (2.5-6.2); eGFR > 60.00
[2024-11-01 14:02] LABS: TSH 0.61 uIU/ml (0.47-4.68)
[2024-11-03 02:03] LABS: Lipoprotein a (Lp a) 29 mg/dL (<=29)
== END ==
LOC: HWLAB 07:54
PROVIDERS: ATTENDING PHYSICIAN Physician Assistant; FAMILY PHYSICIAN Family Medicine
DX: E78.2 Mixed hyperlipidemia (principal); R73.03 Prediabetes; F34.1 Dysthymic disorder; G47.33 Obstructive sleep apnea (adult) (pediatric); F41.8 Other specified anxiety disorders; R53.83 Other fatigue; E66.01 Morbid (severe) obesity due to excess calories
CPT/HCPCS: 36415; 80053; 80061; 83036; 83525; 83695; 83704; 83735; 84439; 84443; 84550; 85025

== ENCOUNTER → 2025-01-06 09:18 | Outpatient (REF) | payer MEDICARE, OTHER, SELFPAY ==
[2025-01-06 10:32] LABS: Hematocrit 39.1 % (37.0-47.0); Hemoglobin 12.6 g/dL (12.0-16.0); Mean Corp Hgb Conc. 32.2 g/dL (33.0-37.0); Mean Corpuscular Volume 99.7 fL (81.0-99.0); Nucleated Red Blood Cells % 0 %; Platelet Count 227 10^3/uL (130-400); Red Cell Dist. Width 13.1 % (11.5-14.5)
[2025-01-06 11:33] LABS: ALT (SGPT) 22 U/L (0-35); AST (SGOT) 23 U/L (14-36); Albumin 4.3 g/dl (3.5-5.0); Alkaline Phosphatase 41 U/L (38-126); Blood Urea Nitrogen 14 mg/dl (7-17); Calcium 10.0 mg/dl (8.4-10.2); Carbon Dioxide 28 mmol/L (22-30); Chloride 101 mmol/L (98-107); Glucose 99 mg/dl (70-99); HDL Cholesterol 50 mg/dl; LDL Cholesterol, Calculated 29 mg/dl; Potassium 4.9 mmol/L (3.5-5.1); Sodium 134 mmol/L (135-145); Total Protein 6.9 g/dl (6.3-8.2); Very Low Density Lipoprotein 8 mg/dl (0-30); eGFR > 60.00
[2025-01-06 12:10] LABS: Glycohemoglobin (HgbA1c) 5.8 % (4.0-5.9)
== END ==
LOC: REG 09:18
PROVIDERS: ATTENDING PHYSICIAN Family Medicine
DX: R73.01 Impaired fasting glucose (principal); E78.2 Mixed hyperlipidemia; R53.83 Other fatigue; Z13.29 Encounter for screening for other suspected endocrine disorder; Z12.11 Encounter for screening for malignant neoplasm of colon
CPT/HCPCS: 36415; 80053; 80061; 83036; 84443; 85025

== ENCOUNTER → 2025-01-16 12:41 | Outpatient (REF) | payer MEDICARE, OTHER, SELFPAY | LOC: REG 12:41 | PROVIDERS: ATTENDING PHYSICIAN Family Medicine | DX: R53.83 Other fatigue (principal); Z13.29 Encounter for screening for other suspected endocrine disorder; Z12.11 Encounter for screening for malignant neoplasm of colon | CPT/HCPCS: 83520 ==